=== PATIENT | male | born 1975 | race Caucasian/White ===

== ENCOUNTER 2020-06-20 09:14 | Outpatient (REF) | payer BC, SELFPAY ==
--- NOTE | 2020-06-20 10:48 | ECG_ITS ---
Test Reason : SOB, PREOP Blood Pressure : / mmHG Vent. Rate : 070 BPM Atrial Rate : 070 BPM P-R Int : 140 ms QRS Dur : 086 ms QT Int : 378 ms P-R-T Axes : 047 033 014 degrees QTc Int : 408 ms Normal sinus rhythm Normal ECG When compared with ECG of 29-JUN-2019 10:35, No significant change was found Referred By: Rena Larson Electronically Signed By:VALARIE HANNA MD
[2020-06-20 12:06] LABS: MANUAL DIFF FLAG NO
[2020-06-20 12:10] LABS: Basophils Percent Auto 0.4 % (0-2); Eosinophils Absolute Auto 0.1 X10*3/uL (0.0-0.4); Eosinophils Percent Auto 1.4 % (0-4); Hematocrit 44.4 % (42-52); Hemoglobin 14.2 g/dl (14.0-18.0); Imm Gran Abs Auto 0.03 X10*3/uL (0.00-0.03); Imm Gran Pct Auto 0.4 % (0.0-0.4); Lymphocytes Absolute Auto 1.4 X10*3/uL (1.2-4.9); Lymphocytes Percent Auto 18.4 % (20-40); Mean Corpuscular Hemoglobin 28.6 pg (27.0-33.0); Mean Corpuscular Volume 89.5 fL (80-98); Mean Platelet Volume 9.8 fL (9.4-12.4); Monocytes Absolute Auto 0.5 X10*3/uL (0.1-1.2); Monocytes Percent Auto 6.4 % (2-11); Neutrophils Absolute Auto 5.7 X10*3/uL (2.0-8.3); Platelet Count 215 X10*3/uL (160-400); Red Blood Count 4.96 X10*6/uL (4.60-5.80); Red Cell Distribution Width 13.2 % (11.0-16.0); White Blood Count 7.8 X10*3/uL (4.8-10.8)
[2020-06-20 12:35] LABS: Anion Gap 13 (12-20); Blood Urea Nitrogen 17 mg/dL (9-16); Calcium 8.8 mg/dL (8.4-10.2); Carbon Dioxide 28 mmol/L (22-29); Chloride 104 mmol/L (96-108); Estimated Glomerular Filt Rate > 60; Glucose Random 80 mg/dL (60-115); Potassium 4.5 mmol/l (3.3-5.1); Sodium 140 mmol/L (135-145)
[2020-06-20 12:59] LABS: Glucose Urine UA NEG (NEG); Leukocyte Esterase Urine NEG (NEG); Nitrite Urine NEG (NEG); PH 6.5 (5.0-8.0); Specific Gravity - Urine 1.025 (1.005-1.025); Urine Blood NEG (NEG); Urine Ketones >=80 MG/DL (NEG); Urine Protein NEG (NEG-TRACE)
[2020-06-20 13:02] LABS: Appearance Urine CLEAR; Color Urine DARK YELLOW
== END 2020-06-20 09:15 | disposition home or self-care (01) ==
LOC: HO.LAB 09:14
PROVIDERS: PCP Internal Medicine; Referring Provider Internal Medicine; Visit Provider Surgery
DX: Z01.818 Encounter for other preprocedural examination (principal); R06.02 Shortness of breath; E66.8 Other obesity; Z68.38 Body mass index [BMI] 38.0-38.9, adult; Z71.3 Dietary counseling and surveillance
CPT/HCPCS: 36415; 80048; 81003; 85025; 86850; 86900; 86901; 93005

== ENCOUNTER → 2020-06-21 13:49 | Outpatient (BNVA) | payer BC, OTHER, SELFPAY | PROVIDERS: PCP Internal Medicine; Visit Provider Physician Assistant | DX: Z76.89 Persons encountering health services in other specified circumstances (principal) ==

== ENCOUNTER 2020-06-26 10:01 | Inpatient (IN) | payer BC, SELFPAY ==
[2020-06-19 10:15] VITALS: BMI 39.7
--- NOTE | 2020-06-24 09:03 | HO.ANESPROP2 ---
Documented by User: Trinidad Gruber 06/24/20 09:08 HPI - Anesthesia Eval Consult details Narrative: 45yo M for gastric sleeve PMFSH Past Medical History Medical History (Updated 06/24/20 @ 09:03 by Trinidad Gruber) Anxiety Depression Hx of deep venous thrombosis Obesity Seasonal allergies Family History Family History Father Seizure Mother HTN (hypertension) History of open heart surgery Type 2 diabetes mellitus Heart disease Sister No problems noted. Daughter No problems noted. Daughter No problems noted. Son No problems noted. Maternal Uncle Colon cancer Surgical History Surgical History History of ankle surgery History of open reduction and internal fixation (ORIF) procedure Hx laparoscopic cholecystectomy Hx of appendectomy Hx of bladder repair surgery Hx of pelvic surgery Social History Social History Alcohol intake: current Alcohol intake frequency: a few times a week Alcohol type: other Smoking Status: Never smoker Meds Allergies Allergy/AdvReac Type Severity Reaction Status Date / Time No Known Allergies Allergy Verified 06/20/20 09:48 Home Medications Medication Instructions Recorded Confirmed Type ergocalciferol (vitamin D2) 1,250 mcg PO QWEEK 06/19/20 06/20/20 History [Vitamin D2] thiamine HCl (vitamin B1) [Vitamin 100 mg PO DAILY 06/19/20 06/20/20 History B-1] Exam Exam Date and Time: June 24, 2020 0903 Height,Weight and Vital Signs: Height 5 ft 7 in Weight 115.212 kg Pertinent Lab Results Pertinent Lab Results: Laboratory Tests 04/12/20 06/20/20 06/20/20 12:30 10:51 10:51 WBC 7.8 Hgb 14.2 Hct 44.4 Plt Count 215 Sodium 140 Potassium 4.5 Chloride 104 Carbon Dioxide 28 BUN 17 H Creatinine 0.96 Estimated GFR > 60 Random Glucose 80 Hemoglobin A1c 5.5 Calcium 8.8 Blood Type Antibody Screen 06/20/20 10:51 WBC Hgb Hct Plt Count Sodium Potassium Chloride Carbon Dioxide BUN Creatinine Estimated GFR Random Glucose Hemoglobin A1c Calcium Blood Type B Positive Antibody Screen NEGATIVE Narrative Narrative: EKG: Test Reason : SOB, PREOP Blood Pressure : / mmHG Vent. Rate : 070 BPM Atrial Rate : 070 BPM P-R Int : 140 ms QRS Dur : 086 ms QT Int : 378 ms P-R-T Axes : 047 033 014 degrees QTc Int : 408 ms Normal sinus rhythm Normal ECG When compared with ECG of 29-JUN-2019 10:35, No significant change was found Assessment and Plan Assessment Anesthesia Assessment: Chart Reviewed Documented by User: Maykel Araujo 06/26/20 07:26 PMF Past Medical History Medical History (Updated 06/24/20 @ 09:03 by Trinidad Gruber) Anxiety Depression Hx of deep venous thrombosis Obesity Seasonal allergies Family History Family History Father Seizure Mother HTN (hypertension) History of open heart surgery Type 2 diabetes mellitus Heart disease Sister No problems noted. Daughter No problems noted. Daughter No problems noted. Son No problems noted. Maternal Uncle Colon cancer Surgical History Surgical History History of ankle surgery History of open reduction and internal fixation (ORIF) procedure Hx laparoscopic cholecystectomy Hx of appendectomy Hx of bladder repair surgery Hx of pelvic surgery Social History Social History Alcohol intake: current Alcohol intake frequency: a few times a week Alcohol type: other Smoking Status: Never smoker Meds Allergies Allergy/AdvReac Type Severity Reaction Status Date / Time No Known Allergies Allergy Verified 06/20/20 09:48 Home Medications Medication Instructions Recorded Confirmed Type ergocalciferol (vitamin D2) 1,250 mcg PO QWEEK 06/19/20 06/20/20 History [Vitamin D2] thiamine HCl (vitamin B1) [Vitamin 100 mg PO DAILY 06/19/20 06/20/20 History B-1] Exam Airway Mallampati Class: II TM Dist: >3cm Neck ROM: Full Heart: RRR Assessment and Plan Assessment Anesthesia Assessment: Anesthesia Plan Discussed Final Anesthetic Review NPO: Yes ASA Class: II Final Preanesthetic Review: Consent Obtained/Reviewed Anesthetic Plan Anesthetic Plan: GA Disposition: Standard PACU
--- NOTE | 2020-06-25 16:45 | MHC.SHP ---
Pre-Procedural Eval Section A The patient is an INPATIENT: No The History & Physical has been completed within 30 days and I have reviewed it.: Yes Section B Chief Complaint: Obesity Allergies: Allergies Allergy/AdvReac Type Severity Reaction Status Date / Time No Known Allergies Allergy Verified 06/20/20 09:48 Plan Patient has been examined and remains a candidate for the planned procedure
[2020-06-26] VITALS (14 sets, daily range): BP systolic 121–190; BP diastolic 78–103; PULSE 76–121; RESP 14–20; TEMP 36.2–36.9; O2SAT 92–98
[2020-06-26] MEDS: Lactated Ringers 1,000 ML 125 ML IVCONT (06:36)
[2020-06-26 07:14] LABS: SARS COV2 PCR INHOUSE NEGATIVE (Negative)
--- NOTE | 2020-06-26 10:15 | PM.OP ---
Brief Operative Note Date of procedure: 06/26/20 Pre-op diagnosis: Obesity, BMI 38 Post-op diagnosis: other (Same and paraesophageal hernia) Procedure: Laparoscopic sleeve gastrectomy, paraesophageal hernia repair, intraoperative endoscopy, and ARON block Implants: None Surgeon: Rena Larson MD Anesthesia: [facility] Instructor: Loyda Shi Estimated blood loss (mL): 10 Urine output (mL): 0 Pathology: other (Partial gastrectomy) Condition: stable Disposition: PACU
--- NOTE | 2020-06-26 10:17 | W.PM.OPN ---
Operative Note Operative Note Narrative: Patient was brought into the operating room and placed on the operating room table in the supine position. General anesthesia was induced. Normal DVT prophylaxis was instituted and the patient received 2 grams of cefotetan preoperatively. The abdomen was then prepped and draped in the normal sterile fashion. A safety time-out was performed. A mixture of 1% lidocaine with epinephrine and ??% Marcaine plain was used to anesthetize the planned incision site in the left upper quadrant. A #11 scalpel was used to make a 5 mm left upper quadrant transverse incision through which a veress needle was placed. Three pops were heard going through the fascia. A saline drop test was used to confirm that the veress needle was intraabdominal. An optiview technique was then used to place a 5mm port in the left upper quadrant. A 5 mm 30 degree laproscope was then placed through this port and the abdominal cavity was surveyed and was found to have abdominal adhesions of the omentum to the midline abdominal wall. These were taken down using the laparoscopic LigaSure after an additional 5 mm port was placed in the left lateral left upper quadrant. The patient was placed in reverse Trendelenburg positioning. A norbert liver retractor was then placed in the subxyphoid position and it was used to hold up the left lobe of the liver to the abdominal wall. This was secured to the bed using the liver retractor hernandez. A ARON block was then performed for pain control on the right side of the abdomen. A 5 mm port was placed in the right upper quadrant near the falciform ligament. A 12 mm port was then placed in the mid epigastrium. I then performed a ARON block on the left side of the abdomen. I then removed the epigastric fat pad; there was a small anterior hiatal hernia noted. I reapproximated the left and right crura with a total of 2 stitches of 2-0 ethibond and a laparoscopic knot pusher. There was no residual hiatal hernia. I then opened up the angle of His. We then gained entry into the lesser sac about 4-5 cm from the pylorus. I had anesthesia place a 34 Slovenian orogastric tube into the distal antrum to use as a sizing tool for gastric pouch size. I divided the short gastric vessels up to the angle of His. We then started the creation of the gastric pouch by firing a 60 mm purple load endostapler up the stomach about 4-5 cm from the pylorus. We completed the creation of the gastric pouch using a total of 5 firings of a 60 mm purple load stapler. We had anesthesia remove the orogastric tube, then we clamped across the distal antrum using a fired 60 mm endostapler. We flattened the patient and then instilled normal saline surrounding the newly created staple line. I then performed an on-table endoscopy. I passed the gastroscopy into the posterior oropharynx and down the esophagus evaluating the esophageal mucosa which was normal. There was no evidence of hiatal hernia. I passed the gastroscope into the gastric pouch and insufflated the gastric pouch. There was healthy pink mucosa and no evidence of active bleeding. There was no evidence of leak on laparoscopy. I desufflated the gastric pouch and removed the endoscope. I removed the endostapler from the abdomen and suctioned the fluid from the left upper quadrant. I then removed the partial gastrectomy specimen through the epigastric 12 mm port site. I reapproximated the 12 mm port using a 0 maxon suture with a laparoscopic suture passer. I instilled local anesthetic into the fascial closure site and tied the suture down at a pressure of 8-10 mm of Hg. There was no residual fascial defect. We removed the liver retractor and the left upper quadrant 5 mm ports under direct visualization. There was no evidence of any active bleeding. I desufflated the abdomen through the last remaining port and removed the laparoscope and 5 mm port. We reapproximated all incisions with a 4-0 monocryl subcuticular stitch. We cleaned and dried the abdominal skin and applied dermabond skin glue. All count were correct at the end of the case. The patient was awake and in stable condition prior to extubation and transfer to the recovery room.
[2020-06-26] MEDS: HYDROmorphone HCl 0.5 MG/0.5 ML SYRINGE IVPUSH (10:40)
[2020-06-26] MEDS: Lactated Ringers 1,000 ML 150 ML IVCONT ×2 (11:30→17:47)
--- NOTE | 2020-06-26 12:17 | MHC.CM.PN ---
pt lives c his in their home. he reports that he is independent in his care. 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 pt's can help him should he have any needs. this will include a ride home at dc. pt denies then need for vna at dc. dc plan is home no svcs. cm to cont. to follow
[2020-06-26] MEDS: Metoclopramide HCl 10 MG/2 ML VIAL IVPUSH (17:05)
[2020-06-26] MEDS: HYDROmorphone HCl 0.5 MG/0.5 ML SYRINGE 0.25 MG IVPUSH (17:10)
[2020-06-26] MEDS: Famotidine/PF 20 MG/2 ML VIAL IVPUSH (20:35)
[2020-06-26] MEDS: 0.9 % Sodium Chloride Flush 3 ML SYRINGE IVFLUSH (22:10)
[2020-06-27 03:49] VITALS: BP 142/87; PULSE 100; RESP 16; TEMP 37.1; O2SAT 94
[2020-06-27] MEDS: Lactated Ringers 1,000 ML 150 ML IVCONT (07:06)
[2020-06-27 07:17] VITALS: BP 163/98; PULSE 86; RESP 18; TEMP 36.9; O2SAT 94
[2020-06-27] MEDS: Famotidine/PF 20 MG/2 ML VIAL IVPUSH (08:24)
--- NOTE | 2020-06-27 09:17 | PM.PNGS ---
Subjective Subjective Interval history: Patient reports feeling well. He has mild soreness at the midline laparoscopic 12 mm port site. He has been up and ambulating using incentive spirometer. Pain is well controlled. He denies any nausea vomiting. He is tolerating stage II diet without any difficulty. Vital signs are relatively normal for postoperative day 1. labs are also within normal limits. Physical Exam Vital Signs: Vital Signs: Vital Signs Temp Pulse Resp BP Pulse Ox 06/27/20 07:17 98.4 F 86 18 163/98 H 94 06/27/20 03:49 98.8 F 100 16 142/87 H 94 06/26/20 23:50 98.2 F 102 H 20 150/96 H 94 06/26/20 19:26 98.2 F 98 19 154/94 H 95 06/26/20 16:00 98.3 F 99 18 143/89 H 94 06/26/20 12:55 143/94 H 06/26/20 11:44 97.2 F 104 H 18 190/98 H 92 06/26/20 11:01 104 H 16 147/103 H 97 06/26/20 10:54 107 H 18 152/97 H 96 06/26/20 10:40 97.6 F 103 H 16 145/98 H 97 06/26/20 10:25 104 H 20 147/101 H 96 06/26/20 10:10 101 H 18 139/97 H 97 06/26/20 10:05 107 H 16 150/97 H 96 06/26/20 10:00 104 H 16 155/102 H 95 06/26/20 09:55 97.6 F 121 H 14 135/81 97 Body Mass Index 39.7 Const: General: cooperative, healthy appearing, comfortable, no acute distress, well developed, alert, awake and Physically active Orientation/consciousness: patient oriented x3 GI: Inspection: No Abdominal wall edema, No distended, Yes incision ( Laparoscopy incisions with Dermabond in place. No evidence of infection ) and Yes obesity Palpation (GI): Tenderness to palpation present (GI) ( mild appropriate incisional tenderness.), no guarding, no hernias, no masses and No Rebound tenderness present Neuro: General: patient oriented x3 Extrem: General: Yes normal to inspection, Yes full ROM, Yes no clubbing, cyanosis or edema, Yes no pedal edema and Yes no calf tenderness Progress Note: A&P Assessment and plan (1) Obesity (BMI 30-39.9): Status: Acute (2) Obesity: Status: Acute (3) History of sleeve gastrectomy: Status: Acute Assessment and Plan: patient is postoperative day 1. Status post laparoscopic sleeve gastrectomy and paraesophageal hernia repair doing well on postoperative day 1. Patient is tolerating stage II diet will be advanced to stage III diet. Once he is tolerating stage III diet he will be discharged home to follow up with me in 2 weeks time frame. (4) Status post repair of paraesophageal diaphragmatic hernia: Status: Acute Fall Risk Details Current Medications: Current Medications Generic Name Dose Route Start Last Admin Trade Name Freq PRN Reason Stop Dose Admin Famotidine 20 mg 06/26/20 21:00 06/27/20 08:24 Famotidine/Pf 20 Mg/2 Ml Vial IVPUSH 20 mg BID TALHA Administration Hydralazine HCl 5 mg 06/26/20 13:42 Hydralazine Hcl 20 Mg/Ml Vial IVPUSH Q6H PRN systolic BP > 160 Hydromorphone HCl 0.25 mg 06/26/20 10:01 06/26/20 17:10 Hydromorphone Hcl 0.5 Mg/0.5 Ml Syringe IVPUSH 0.25 mg Q4H PRN Administration Pain, Severe (Pain Scale 7-10) Lactated Ringer's 1,000 mls @ 150 mls/hr 06/26/20 10:15 06/27/20 07:06 Lr IVCONT 150 mls/hr .Q6H40M TALHA Administration Acetaminophen 1,000 mg in 100 mls @ 400 mls/hr 06/26/20 10:15 06/27/20 09:12 Ofirmev IV 400 mls/hr Q6H TALHA Administration Cefotetan Disodium 2 gm/ 50 mls @ 100 mls/hr 06/26/20 19:30 06/26/20 21:19 Dextrose IV Infused ONCE TALHA Infusion Metoclopramide HCl 10 mg 06/26/20 10:01 06/26/20 17:05 Metoclopramide Hcl 10 Mg/2 Ml Vial IVPUSH 10 mg Q6H PRN Administration Nausea Ondansetron HCl 4 mg 06/26/20 10:01 Ondansetron Hcl 4 Mg/2 Ml Vial IVPUSH Q4H PRN Nausea and Vomiting Sodium Chloride 3 ml 06/26/20 16:00 06/27/20 07:06 0.9 % Sodium Chloride Flush 3 Ml Syringe IVFLUSH Not Given QSHIFT TALHA Time Spent With Patient Time: Total time spent is greater than 50% in coordination of care (as documented) at patient's floor/unit and/or counseling patient: Time with patient: less than 15 minutes
--- NOTE | 2020-06-27 10:44 | MHC.CM.PN ---
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 PCP PATIENT TO FOLOW UP WITH PCP DEB FOR POST HOSPITAL DISCHARGE
--- NOTE | 2020-06-27 12:54 | HO.POSTANES ---
Post Anesthesia Evaluation Post Anesthesia Evaluation Vital Signs: Vital Signs Temp Pulse Resp BP Pulse Ox 06/27/20 07:17 98.4 F 86 18 163/98 H 94 06/27/20 03:49 98.8 F 100 16 142/87 H 94 Anesthesia: General Mental Status: Awake Pain Control: Satisfactory Nausea/Vomiting: None Hydration: Adequate Anesthesia-Related Issues: No Anes. Related Issues
--- NOTE | 2020-08-28 15:57 | P.DS_ITS ---
DS: Providers Provider Date of admission: 06/26/20 10:01 Primary care physician: jamia Joe MD DS: Diagnosis Discharge Diagnosis (1) Obesity (BMI 30-39.9): Status: Acute (2) Obesity: Status: Acute (3) History of sleeve gastrectomy: Status: Acute (4) Status post repair of paraesophageal diaphragmatic hernia: Status: Acute DS: Medications Discharge Medications Home Medications: Home Medications Medication Instructions Recorded Confirmed ergocalciferol (vitamin D2) 1,250 mcg PO QWEEK 06/19/20 07/23/20 [Vitamin D2] thiamine HCl (vitamin B1) [Vitamin 100 mg PO DAILY 06/19/20 07/23/20 B-1] DS: Summary Time Spent with Patient Time attestation: Total time spent providing and/or coordinating discharge services: Physical Exam Vital Signs: Vital Signs: Last Vital Signs Temp 98.4 F 06/27/20 07:17 Pulse 86 06/27/20 07:17 Resp 18 06/27/20 07:17 BP 163/98 H 06/27/20 07:17 Pulse Ox 94 06/27/20 07:17 Body Mass Index 39.7 DS: Data Data Completed and Pending Completed studies during hospitalization [Text1]: Pending at discharge 06/26/20 08:34 Surgical [PTH] Routine Procedures Excision of Stomach, Percutaneous Endoscopic Approach, Vertical (06/26/20) Repair Diaphragm, Percutaneous Endoscopic Approach (06/26/20) Labs on day of discharge: 06/26/20 05:46 Acetaminophen [Ofirmev] 1,000 mg in 100 ml IV PREOP cefoTEtan disod/Dextrose,Iso [Cefotan] 2 gm in 50 ml IV PREOP 06/26/20 05:46 Surgical prep, hair removal PREOP 06/26/20 05:50 SARS COV2 PCR INHOUSE Stat 06/26/20 06:00 Lactated Ringers [Lr] 1,000 ml IVCONT 125 mls/hr 06/26/20 06:24 Type and Screen Stat 06/26/20 06:33 Acetaminophen [Ofirmev] 1,000 mg in 100 ml IV As directed 06/26/20 07:10 Bupivacaine MPF 0.25 % [Sensorcaine-MPF 0.25% 10 ML] 10 ml .ROUTE .STK-MED ONE Lidocaine HCl 1%/Epi 1:100,000 [Xylocaine 1 %-EPI 1:100,000] 30 ml .ROUTE .STK-MED ONE 06/26/20 07:14 HYDROmorphone HCl [Dilaudid] 2 mg .ROUTE .STK-MED ONE Ketamine HCl/NS 50 mg IVPUSH .STK-MED ONE Lidocaine HCl 2 % MPF [Xylocaine 2 % MPF] 5 ml .ROUTE .STK-MED ONE Midazolam HCl/PF [Versed] 2 mg IVPUSH .STK-MED ONE Rocuronium [place] [Zemuron] 100 mg IV .STK-MED ONE Succinylcholine Chloride [Quelicin] 100 mg IVPUSH .STK-MED ONE propofoL [Diprivan] 200 mg IVPUSH .STK-MED ONE 06/26/20 07:15 fentaNYL citrate/PF [Sublimaze] 50 mcg .ROUTE .STK-MED ONE 06/26/20 07:27 Continuous pulse oximetry CONT HYDROmorphone HCl [Dilaudid] 0.25 mg IVPUSH Q5M PRN HYDROmorphone HCl [Dilaudid] 0.5 mg IVPUSH Q5M PRN Promethazine HCL [Phenergan] 12.5 mg 0.9 % Sodium Chloride [Ns] 50 ml IV ONCE fentaNYL citrate/PF [Sublimaze] 25 mcg IVPUSH Q5M PRN fentaNYL citrate/PF [Sublimaze] 50 mcg IVPUSH Q5M PRN ondansetron HCL [Zofran] 4 mg IVPUSH ONCE PRN 06/26/20 08:20 fentaNYL citrate/PF [Sublimaze] 50 mcg .ROUTE .STK-MED ONE 06/26/20 08:34 Surgical [PTH] Routine 06/26/20 08:40 Sugammadex Sodium [Bridion] 200 mg IVPUSH .STK-MED ONE dexAMETHasone sod phosphate [Decadron] 4 mg .ROUTE .STK-MED ONE ondansetron HCL [Zofran] 4 mg .ROUTE .STK-MED ONE 06/26/20 09:21 Metoclopramide HCl [Reglan] 10 mg .ROUTE .STK-MED ONE 06/26/20 10:01 Ambulate Q4H WHILE AWAKE Compression Therapy QSHIFT Incentive Spirometry Q1HR WHILE AWAKE Intake and Output Q4HR Code Status Routine HYDROmorphone HCl [Dilaudid] 0.25 mg IVPUSH Q4H PRN Metoclopramide HCl [Reglan] 10 mg IVPUSH Q6H PRN cefoTEtan disod/Dextrose,Iso [Cefotan] 2 gm in 50 ml IV POSTOP ondansetron HCL [Zofran] 4 mg IVPUSH Q4H PRN 06/26/20 10:03 Vital Signs Q4H 06/26/20 10:09 Transfer Order Routine 06/26/20 10:15 Acetaminophen [Ofirmev] 1,000 mg in 100 ml IV Q6H Lactated Ringers [Lr] 1,000 ml IVCONT 150 mls/hr 06/26/20 10:20 Famotidine/PF [Pepcid/PF] 20 mg IVPUSH .STK-MED ONE 06/26/20 13:42 hydrALAZINE HCl [Apresoline] 5 mg IVPUSH Q6H PRN 06/26/20 16:00 0.9 % Sodium Chloride Flush [NS Flush] 3 ml IVFLUSH QSHIFT 06/26/20 19:30 cefoTEtan disodium [Cefotan] 2 gm Dextrose 5 % [D5w] 50 ml IV ONCE 06/26/20 20:26 cefoTEtan disodium [Cefotan] 2 gm .ROUTE .STK-MED ONE 06/26/20 21:00 Famotidine/PF [Pepcid/PF] 20 mg IVPUSH BID Laboratory Last Values Coronavirus (PCR) NEGATIVE (Negative) 06/26/20 05:50 Blood Type B Positive 06/26/20 06:24 Antibody Screen NEGATIVE 06/26/20 06:24 Discharge Plan Discharge Anticipated Discharge Date/Time: 06/27/20 12:00 Patient Disposition: Home, Self-Care Referrals: jamia Joe MD [Primary Care Provider] - Discharge Medications: Continued thiamine HCl (vitamin B1) [Vitamin B-1] 100 mg Tablet 100 mg PO DAILY RF: 0 ergocalciferol (vitamin D2) [Vitamin D2] 1,250 mcg (50,000 unit) Capsule 1,250 mcg PO QWEEK RF: 0 Discharge Orders: Discharge Order (Routine); Ordered 06/27/20 Ordered By: Rena Larson Diet: other Activity on Discharge: No heavy lifting Discharge Date/Time: 06/27/20 11:26 Activity Restrictions/Additional Instructions: Discharge Instructions 1. Please call your doctor or come back to the emergency room should any new symptoms arise. 2. You will receive a courtesy call from [facility] 24-48 hours after discharge. 3. Activity: abstain from alcohol, practice limited stair climbing, no bending, no driving, no exercise, no illicit substances, no lifting, no sex, no tub bath, no work. 4. Diet: continue stage 3 protein shakes until your [address] Larson. 5. Dressing Change/Wound Care: Your incision is covered by surgical glue. If the area is tender, you may apply an ice pack for short intervals (no more than 20 minutes on, followed by at least 20 minutes off). Do not apply heat. Do not use creams, lotions, or topical antibiotics unless instructed to do so by your surgeon. These can cause infection or allergic reaction. 6. Call your doctor if: - Your temperature exceeds 101.5 F - You experience excessive pain or swelling - You have an unexpected reaction to medication - You have excessive bleeding - You experience continued vomiting/nausea - Your incision begins to separate - Your incision shows signs of infection such as increased redness, swelling, excessive pain, heat, or drainage (light blood or clear fluid is normal) 7. General instructions: No lifting greater than 5 lbs for the next 4 [address] within 24 hours of taking narcotic pain medications. If you do not move your bowels in the next 2 days, please take milk of magnesia over the counter. Please follow the post op diet and do not advance your diet until you are seen in the office in about 2 weeks. Please walk around your home every hour or two to prevent blood clots from forming in your legs. You do not need to wake from sleeping to walk. Please sleep in a bed or couch to prevent kinking at the hips and knees. Please take your incentive spirometer (your lung calender roll press operator) home with you and use it for the next few days to prevent pneumonias. You may shower, no hot tubs, baths or swimming pools. Please call the office with any questions or concerns such as increasing abdominal pain, fever, chills, shortness of breath, chest pain, leg pain or swelling, or redness or drainage from your incisions. Please stay on stage 3 diet which includes sugar free clear liquids such as ice pops and jello and broth and crystal light. Avoid all carbonation. Please drink 3 protein shakes with at least 25-30 grams of protein daily or 3 of the Celebrate 4:1 shakes which can be purchased in our office. The Celebrate shakes have all of the bariatric vitamins you need if you consume these shakes. If you are drinking other protein shakes, you will need to purchase the Celebrate multivitamins and calcium that we provide in the office (they will provide all the vitamins you need). Please make sure you are consuming at least 40-60 ounces of water in addition to your 3 protein shakes daily. Do not hesitate to contact the office with any questions at . Discharge Summary Date of Service: 06/27/20 Admitting Diagnosis: obesity Discharge Diagnosis: same, and HH and adhesions Procedure Performed: LSG, hiatal hernia repair, RICHIE, Emily block, intra-operative endoscopy Discharge Medications: 1. Simethicone 80mg tablet chewable (Si tablet every 6 hours orally for 7 days, #28, 1 RF) q4h prn gas 2. Acetaminophen 500 mg tablet (Si tablets as needed every 6 hours orally for 30 days, #240, 0 RF) 3. Ondansetron 4 mg tablet disintegrating (Si tablet every 6 hours orally for 7 days, #28, 1 RF) 4. Colace 100 mg capsule (Si capsule twice a day for 30 days, #60, 2 RF) 5. Pepcid 20 mg chewable tablet (Si tablet twice a day for 30 days, #60, 3 RF) Discharge Instructions: The patient should continue on the stage III bariatric diet, which includes 3 protein shakes of at least 20-30g of protein on a daily basis. The patient was encouraged to avoid drinking liquids with her protein shakes. The patient should wait 30-45 minutes in between her meals and drinking water. They should drink at least 40-60 ounces of water on a daily basis. They should ambulate while at home to avoid any blood clots in her lower extremities. They should call with any questions or concerns such as increase in abdominal pain, persistent nausea, vomiting, redness and drainage from her incisions, fever, chills, shortness of breast, or chest pain beyond what is normal for her. The patient should avoid all heavy lifting greater than 5 pounds for the next 4 weeks. The patient is already scheduled to follow up with me in 2 weeks time, but should call the office with any questions prior to that follow up appointment. The patient should not advance their diet until they are seen in the office for the 2 week appointment. Hospital Course: The patient was admitted after undergoing weight loss surgery. They were started on stage II (1 oz of fluid every 15 minutes) on POD #0. The next morning they were evaluated and started on stage III diet (protein shakes). All labs were within normal limits. On post-operative day #1 the patient was feeling better, nausea and epigastric pain improved and they were tolerating stage III bariatric diet well. The patient was discharged home. Discharge Disposition: Home. Visit Report Forms: Patient Portal Discharge page Care Plan Goals: weight loss Health Concerns: obesity Plan of Treatment: lap sleeve gastrectomy
== END 2020-06-27 11:26 | disposition home or self-care (01) | DRG 403 ==
PROVIDERS: Admitting Provider Surgery; PCP Internal Medicine; Visit Provider Surgery
PROC: 0DB64Z3 Excision of Stomach, Percutaneous Endoscopic Approach, Vertical (ICD-10-PCS; CPT 43845; principal; 2020-06-26 07:30)
DX: E66.01 Morbid (severe) obesity due to excess calories (principal); F32.9 Major depressive disorder, single episode, unspecified; F41.9 Anxiety disorder, unspecified; Z20.828 Contact with and (suspected) exposure to other viral communicable diseases; Z68.39 Body mass index [BMI] 39.0-39.9, adult; K44.9 Diaphragmatic hernia without obstruction or gangrene; Z79.899 Other long term (current) drug therapy
CPT/HCPCS: 86850; 86900; 86901; 87635; 88307; 88342; C1776; J0131; J0330; J1100; J1170; J2250; J2405; J2765; J3010

== ENCOUNTER → 2020-07-09 11:19 | Outpatient (BNVA) | payer BC, OTHER, SELFPAY | PROVIDERS: PCP Internal Medicine; Visit Provider Surgery | DX: Z76.89 Persons encountering health services in other specified circumstances (principal) ==

== ENCOUNTER → 2020-07-23 15:52 | Outpatient (BNVA) | payer BC, OTHER, SELFPAY | PROVIDERS: PCP Physician Assistant; Referring Provider Physician Assistant; Visit Provider Physician Assistant | DX: Z76.89 Persons encountering health services in other specified circumstances (principal) ==

== ENCOUNTER 2020-07-24 16:40 | Outpatient (REF) | payer BC, OTHER, SELFPAY | END 2020-07-24 16:41 | disposition home or self-care (01) | LOC: HO.LAB 16:40 | PROVIDERS: PCP Internal Medicine; Visit Provider Internal Medicine | DX: Z20.828 Contact with and (suspected) exposure to other viral communicable diseases (principal) | CPT/HCPCS: C9803; U0003 ==

== ENCOUNTER → 2020-08-27 08:17 | Outpatient (BNVA) | payer BC, OTHER, SELFPAY | PROVIDERS: PCP Physician Assistant; Referring Provider Physician Assistant; Visit Provider Dietitian, Registered | DX: Z76.89 Persons encountering health services in other specified circumstances (principal) ==

== ENCOUNTER → 2020-09-19 14:02 | Outpatient (BNVA) | payer OTHER, SELFPAY | PROVIDERS: PCP Physician Assistant; Visit Provider Surgery | DX: Z76.89 Persons encountering health services in other specified circumstances (principal) ==

== ENCOUNTER → 2020-10-15 12:28 | Outpatient (BNVA) | payer OTHER, SELFPAY | PROVIDERS: PCP Physician Assistant; Visit Provider Physician Assistant ==

== ENCOUNTER → 2020-12-17 13:59 | Outpatient (BNVA) | payer OTHER, SELFPAY | PROVIDERS: PCP Internal Medicine; Visit Provider Surgery ==

== ENCOUNTER 2020-12-19 12:19 | Outpatient (REF) | payer OTHER, SELFPAY ==
[2020-12-19 13:17] LABS: MANUAL DIFF FLAG NO
[2020-12-19 13:24] LABS: Basophils Percent Auto 0.8 % (0-2); Eosinophils Absolute Auto 0.1 X10*3/uL (0.0-0.4); Eosinophils Percent Auto 2.4 % (0-4); Hematocrit 46.2 % (42-52); Hemoglobin 15.2 g/dl (14.0-18.0); Imm Gran Abs Auto 0.01 X10*3/uL (0.00-0.03); Imm Gran Pct Auto 0.2 % (0.0-0.4); Lymphocytes Absolute Auto 1.7 X10*3/uL (1.2-4.9); Lymphocytes Percent Auto 34.3 % (20-40); Mean Corpuscular HGB Conc 32.9 g/dl (31.0-36.0); Mean Corpuscular Hemoglobin 29.1 pg (27.0-33.0); Mean Corpuscular Volume 88.5 fL (80-98); Mean Platelet Volume 9.5 fL (9.4-12.4); Monocytes Absolute Auto 0.5 X10*3/uL (0.1-1.2); Monocytes Percent Auto 8.9 % (2-11); Neutrophils Absolute Auto 2.7 X10*3/uL (2.0-8.3); Neutrophils Percent Auto 53.4 % (45-73); Platelet Count 199 X10*3/uL (160-400); Red Blood Count 5.22 X10*6/uL (4.60-5.80); White Blood Count 5.1 X10*3/uL (4.8-10.8)
[2020-12-19 13:35] LABS: Alanine Aminotransferase 17 U/L (0-40); Albumin Level 4.1 g/dL (3.5-5.0); Alkaline Phosphatase 70 U/L (39-117); Anion Gap 13 (12-20); Aspartate Amino Transferase 22 U/L (5-37); Bilirubin Total 1.1 mg/dL (0.0-1.0); Blood Urea Nitrogen 13 mg/dL (9-16); C Reactive Protein 0.19 mg/dL (< or = 0.50); Calcium 9.3 mg/dL (8.4-10.2); Carbon Dioxide 29 mmol/L (22-29); Chloride 104 mmol/L (96-108); Cholesterol 165 mg/dL; Estimated Glomerular Filt Rate > 60; Glucose Fasting 99 mg/dL (60-99); HDL Cholesterol 48 mg/dL; Iron 84 mcg/dL (45-160); LDL Cholesterol Calculated 108 mg/dl; Percent Iron Saturation 29 % (15-50); Potassium 4.7 mmol/L (3.3-5.1); Sodium 141 mmol/L (135-145); Total Iron Binding Capacity 289 mcg/dL (228-428); Total Protein 6.9 g/dL (6.5-8.0); Triglycerides 48 mg/dL; Unsaturated Iron Binding 205 ug/dL
[2020-12-19 13:37] LABS: Estimated Average Glucose 103 mg/dL; Hemoglobin A1c % 5.2 %
[2020-12-19 13:59] LABS: Thyroid Stimulating Hormone 0.44 uIU/mL (0.32-4.0); Vitamin D 25-OH Total 38.8 ng/mL (>30)
[2020-12-19 14:07] LABS: Vitamin B12 444 pg/mL (200-900)
[2020-12-23 01:26] LABS: Zinc 65 mcg/dL (60-130)
[2020-12-24 17:21] LABS: Vitamin A 31 mcg/dL (38-98)
[2020-12-25 17:22] LABS: Vitamin B1 <6 nmol/L (8-30)
== END 2020-12-19 12:20 | disposition home or self-care (01) ==
LOC: HO.LAB 12:19
PROVIDERS: PCP Internal Medicine; Visit Provider Surgery
DX: Z01.818 Encounter for other preprocedural examination (principal); K91.2 Postsurgical malabsorption, not elsewhere classified; Z90.3 Acquired absence of stomach [part of]
CPT/HCPCS: 36415; 80053; 80061; 82306; 82607; 83036; 83540; 84425; 84443; 84590; 84630; 85025; 86140

== ENCOUNTER → 2021-01-21 14:05 | Outpatient (BNVA) | payer SELFPAY | PROVIDERS: PCP Internal Medicine; Visit Provider Dietitian, Registered | DX: E66.3 Overweight (principal); Z68.28 Body mass index [BMI] 28.0-28.9, adult | CPT/HCPCS: 97803 ==

== ENCOUNTER → 2021-04-07 14:54 | Outpatient (BNVA) | payer OTHER, SELFPAY | PROVIDERS: PCP Internal Medicine; Visit Provider Physician Assistant ==

== ENCOUNTER 2021-06-02 10:37 | Outpatient (REF) | payer OTHER, SELFPAY ==
[2021-06-02 12:44] LABS: MANUAL DIFF FLAG NO
[2021-06-02 12:58] LABS: Basophils Absolute Auto 0.1 X10*3/uL (0.0-0.2); Basophils Percent Auto 1.2 % (0-2); Eosinophils Absolute Auto 0.2 X10*3/uL (0.0-0.4); Eosinophils Percent Auto 3.5 % (0-4); Hematocrit 45.6 % (42-52); Hemoglobin 15.5 g/dl (14.0-18.0); Imm Gran Abs Auto 0.02 X10*3/uL (0.00-0.03); Imm Gran Pct Auto 0.5 % (0.0-0.4); Lymphocytes Absolute Auto 1.4 X10*3/uL (1.2-4.9); Lymphocytes Percent Auto 32.6 % (20-40); Mean Corpuscular Hemoglobin 30.5 pg (27.0-33.0); Mean Corpuscular Volume 89.6 fL (80-98); Mean Platelet Volume 9.4 fL (9.4-12.4); Monocytes Absolute Auto 0.4 X10*3/uL (0.1-1.2); Monocytes Percent Auto 10.3 % (2-11); Neutrophils Absolute Auto 2.2 X10*3/uL (2.0-8.3); Neutrophils Percent Auto 51.9 % (45-73); Platelet Count 191 X10*3/uL (160-400); Red Blood Count 5.09 X10*6/uL (4.60-5.80); Red Cell Distribution Width 12.6 % (11.0-16.0); White Blood Count 4.3 X10*3/uL (4.8-10.8)
[2021-06-02 12:59] LABS: Estimated Average Glucose 97 mg/dL
[2021-06-02 13:13] LABS: Alanine Aminotransferase 16 U/L (0-40); Albumin Level 4.2 g/dL (3.5-5.0); Alkaline Phosphatase 67 U/L (39-117); Anion Gap 11 (12-20); Aspartate Amino Transferase 22 U/L (5-37); Bilirubin Total 0.8 mg/dL (0.0-1.0); Blood Urea Nitrogen 10 mg/dL (9-16); C Reactive Protein 0.07 mg/dL (< or = 0.50); Calcium 9.3 mg/dL (8.4-10.2); Carbon Dioxide 30 mmol/L (22-29); Chloride 105 mmol/L (96-108); Cholesterol 167 mg/dL; Estimated Glomerular Filt Rate > 60; Glucose Fasting 103 mg/dL (60-99); HDL Cholesterol 67 mg/dL; Iron 128 mcg/dL (45-160); LDL Cholesterol Calculated 89 mg/dl; Percent Iron Saturation 43 % (15-50); Potassium 4.6 mmol/L (3.3-5.1); Sodium 141 mmol/L (135-145); Total Iron Binding Capacity 296 mcg/dL (228-428); Triglycerides 58 mg/dL; Unsaturated Iron Binding 168 ug/dL
[2021-06-02 13:36] LABS: Thyroid Stimulating Hormone 0.68 uIU/mL (0.32-4.0); Vitamin D 25-OH Total 26.6 ng/mL (>30)
[2021-06-02 13:38] LABS: Vitamin B12 274 pg/mL (200-900)
[2021-06-04 15:40] LABS: Zinc 80 mcg/dL (60-130)
[2021-06-07 00:22] LABS: Vitamin A 42 mcg/dL (38-98)
[2021-06-07 12:17] LABS: Vitamin B1 6 nmol/L (8-30)
== END 2021-06-02 10:38 | disposition home or self-care (01) ==
LOC: HO.LAB 10:37
PROVIDERS: PCP Internal Medicine; Visit Provider Surgery
DX: Z01.818 Encounter for other preprocedural examination (principal); E66.3 Overweight; Z68.28 Body mass index [BMI] 28.0-28.9, adult; K21.9 Gastro-esophageal reflux disease without esophagitis; Z90.3 Acquired absence of stomach [part of]
CPT/HCPCS: 36415; 80053; 80061; 82306; 82607; 83036; 83540; 84425; 84443; 84590; 84630; 85025; 86140; 99212

== ENCOUNTER 2025-04-05 11:20 | Outpatient (AMB) | payer BC, SELFPAY ==
--- NOTE | 2025-04-05 11:22 | A.OFFVIS_ITS ---
VS Expanded 04/05/25 11:30 BP 129/81 Blood Pressure Location Rt brachial Blood Pressure Position Sitting Pulse 86 Pulse Source Pulse Oximeter Temp 97.2 F Temperature Source Temporal Artery Scan Pulse Oximetry 98 Oxygen Delivery Method Room Air Height 5 ft 7 in Weight 202 lb BMI 31.6 Body Fat % 26.0 Body Fat Mass 52.4 Fat Free Mass 149.4 Visceral Fat Rating 13.0 Body Water % 54.0 Body Water Mass 109.2 Muscle Mass/Score 142.0 Basal Metabolic Rate/Score 1,986 Intake Visit Reasons: OV MO PO LSG 06/26/20 Allergies No Known Allergies Allergy (Verified 04/05/25 11:26) Medication List - Last Reconciled 04/05/25 by RADHA Ch No Known Home Meds HPI Comments Details: This?is a?50?yo F who is s/p LSG 06/26/[address] Larson. Has not been seen in office since May 2021. Weight gain of 23.2lbs since last OV. No complaints of nausea, emesis, abdominal pain or reflux. Does struggle with constipation. Feels he can eat more now. Had been down to 179lbs after surgery. Present meal plan includes: not too consistent with nutrition one meal, then may have a protein bar or egg bites Exercise routine includes: nothing currently Have you been diagnosed with reflux (GERD)? no Score 0-5: 0=no symptoms, 1=noticeable but not bothersome (slight or occasional), 2=noticeable, bothersome but not daily, 3=bothersome and daily, 4=affects daily activities, 5=incapacitating, unable to do daily activities How bad is the heartburn: 0 Heartburn when lying down: 0 Heartburn when standing up: 0 Heartburn after meals: 0 Does heartburn change your diet: 0 Does heartburn wake you up from sleep: 0 Do you have difficulty swallowin Do you have pain with swallowin If you take medication for reflux, does this affect your daily life: 0 Total score: 0 PFSH Medical History Anxiety BMI 28.0-28.9,adult Depression Hx of deep venous thrombosis Intestinal malabsorption following gastrectomy Malabsorption due to intolerance, not elsewhere classified Overweight (BMI 25.0-29.9) Seasonal allergies Surgical History History of ankle surgery History of open reduction and internal fixation (ORIF) procedure History of sleeve gastrectomy Hx laparoscopic cholecystectomy Hx of appendectomy Hx of bladder repair surgery Hx of pelvic surgery Status post repair of paraesophageal diaphragmatic hernia Family History Father Seizure Mother HTN (hypertension) History of open heart surgery Type 2 diabetes mellitus Heart disease Sister No problems noted. Daughter No problems noted. Daughter No problems noted. Son No problems noted. Maternal Uncle Colon cancer Social History (Updated 06/02/21 @ 11:27 by Rena Larson MD) Are you a primary home health care social worker to a significant other at home: Yes Do you presently have visiting nurse or other home services: No Alcohol intake: current Alcohol intake frequency: a few times a week Alcohol type: other Comment: medicated for pain, resting, pain improving Patient Tobacco Use Status: Never used Tobacco service: No Current occupational status: employed Assessment & Plan Assessment & Plan (1) History of sleeve gastrectomy: Code(s): Z90.3 - Acquired absence of stomach [part of] Category: Surgical (2) Obesity (BMI 30-39.9): Code(s): E66.9 - Obesity, unspecified Category: Medical Plan Gave pt NG Advant[employer] jaci download info and encouraged him to follow meal plan created by the jaci. He was agreeable to this plan. He will try to increase exercise as well. Labs ordered. RTC 3mo, texted pt and encouraged him to reach out between appts with any questions. Orders: Orders IRON PROFILE Today Z90.3 - Acquired absence of stomach [part of] C Reactive Protein Today Z90.3 - Acquired absence of stomach [part of] Vitamin B1 Today Z90.3 - Acquired absence of stomach [part of] Zinc Today Z90.3 - Acquired absence of stomach [part of] Comprehensive Met. Panel Today Z90.3 - Acquired absence of stomach [part of] Insulin Today Z90.3 - Acquired absence of stomach [part of] Hemoglobin A1c Today Z90.3 - Acquired absence of stomach [part of] Lipid Panel Today Z90.3 - Acquired absence of stomach [part of] Vitamin D 25-OH Total Today Z90.3 - Acquired absence of stomach [part of] Ferritin Today Z90.3 - Acquired absence of stomach [part of] TSH reflex Free T4 Today Z90.3 - Acquired absence of stomach [part of] Vitamin A Today Z90.3 - Acquired absence of stomach [part of] Vitamin B12 and Folate Today Z90.3 - Acquired absence of stomach [part of] Complete Blood Count Auto Diff Today Z90.3 - Acquired absence of stomach [part of] Medications: New inulin 2 grams PO DAILY 90 tabs 3RF docusate sodium 100 mg PO DAILY 90 caps 1RF
[2025-04-05 11:30] VITALS: BP 129/81; PULSE 86; TEMP 36.2; O2SAT 98; BMI 31.6
--- OUTSIDE RECORDS SUMMARY | 2025-04-05 12:10 | XMS_ITS | Clinical Summary ---
Author Organization [facility] Address [address] [place] [address] Care Team Providers Care Medical Associate Name Role Phone Heath Lucio MD Primary Care Provider [phone] Allergies No known active allergies Medications traZODone (DESYREL) 50 MG tabletIndicatio ns:Pelvic fracture (HCC) Take 1 tablet (50 mg total) by mouth nightly as needed for sleep. 07/14/2017 Active ELIQUIS 5 MG tabletIndicatio ns:Deep Vein Thrombosis Take 5 mg by mouth 2 (two) times a day. 09/13/2017 Active Active Problems Problem Noted Date Diagnosed Date Humerus fracture 07/13/2017 Pelvic hematoma, male 07/13/2017 Bladder injury 07/13/2017 Overview (07/13/2017): Extraperitoneal Urethral injury 07/13/2017 Acute pulmonary embolism 07/13/2017 Closed fracture of transverse process of lumbar vertebra 07/13/2017 Resolved Problems Problem Noted Date Diagnosed Date Resolved Date Pelvic fracture 07/03/2017 10/12/2017 Immunizations Immunization Administration Dates Next Due Tdap 07/03/2017 Social History Tobacco Use Types Packs/Day Years Used Date Smoking Tobacco: Never Smokeless Tobacco: Never Alcohol Use Standard Drinks/Week Comments Yes 0 (1 standard drink = 0.6 oz pur e alcohol) social Sex and Gender Information Value Date Recorded Sex Assigned at Not on file Legal Sex Male 1:45 PM EDT Gender Identity Not on file Sexual Orientation Not on file Last Filed Vital Signs Vital Sign Reading Time Taken Comments Blood Pressure 146/86 10/13/2017 2:30 PM EST Pulse 103 10/13/2017 2:45 PM EST Temperature 37.2 C (99 F) 10/13/2017 2:45 PM EST Respiratory Rate 16 12/22/2017 10:39 AM EDT Oxygen Saturation 96% 10/13/2017 2:45 PM EST Inhaled Oxygen Concentration - - Weight 126 kg (278 lb) 12/22/2017 10:39 AM EDT Height 170.2 cm (5' 7 ) 12/22/2017 10:39 AM EDT Body Mass Index 43.54 12/22/2017 10:39 AM EDT Plan of Treatment Health Maintenance Due Date Last Done Comments Hepatitis C Virus Screening 1975 HIV Screening 01/06/1989 Hepatitis B Vaccines (1 of 3 - 19+ 3-dose series) 01/06/1995 Colonoscopy 01/06/2021 COVID-19 Vaccine (1 - 2023-2 5 season) 2024 Influenza Vaccine 04/06/2025 DTaP/Tdap/Td Vaccines (2 - T d or Tdap) 07/03/2027 07/03/2017 Pneumococcal Vaccine: Pediat marva (0-5 Years) and At-Risk Patients (6 to 49 Years) Aged Out No longer eligible b ased on patient's age to complete this topic Medical Devices Implanted Type Area Narcotics And Vice Detective Device Identifier Shelf Expiration Date Model / Serial / Lot Plate [id number] 10 Hole Lmt Cntct Taper End Brd Ss Bone - [id number] Implanted:Qty: 1 on 07/09/2017 by Sunil Rodas MD at [facility] Plate Right: Arm [employer] 226.601 / / Plate [id number] 5 Hole Ss Bone Lcp Cmbn Nonst 3.5mm Screw - [id number] Implanted:Qty: 1 on 07/09/2017 by Sunil Rodas MD at [facility] Plate Right: Arm [employer] 223.551 / / Screw Bone Lg Bone Flthrd Lg Hex Hmsphr Rvrs Cut Flut 70mm - [id number] Implanted:Qty: 1 on 07/06/2017 by Phoenix Roblero MD at [facility] Screw [employer] 209.670 / / Screw Bone Clavicle Hum Tibia Kirby Lc Dcp Dcp Flthrd Hex 10 - [id number] Implanted:Qty: 2 on 07/09/2017 by Sunil Rodas MD at [facility] Screw Right: Arm [employer] 204.810 / / Screw Bone Periart Cndyl Kirby Lcp 30mm Ss 4.5mm 8mm Slftp Lg - [id number] Implanted:Qty: 1 on 07/09/2017 by Sunil Rodas MD at [facility] Screw Right: Arm [employer] 214.830 / / Screw Bone Kirby 32mm Ss 4.5mm Slftp Lg Hex Nonst Lg Frag Set - [id number] Implanted:Qty: 5 on 07/09/2017 by Sunil Roads MD at [facility] Screw Right: Arm [employer] 214.832 / / Washer 13mm Orthopedic Ss 6.5/7/7.3mm Lakisha Screw Nonst - [id number] Implanted:Qty: 1 on 07/06/2017 by Phoenix Roblero MD at [facility] Washer/Nu t [employer] 219.99 / / [id number] Screw Implanted:Qty: 2 on 07/06/2017 by Phoenix Roblero MD at [facility] [employer] [id number] / / 500mm Tony Implanted:Qty: 1 on 07/06/2017 by Phoenix Roblero MD at [facility] [employer] [id number] / / Saddless Cap Implanted:Qty: 2 on 07/06/2017 by Phoenix Roblero MD at [facility] [employer] [id number] / / Insurance [facility] (AUTO/LIABILITY) [facility] (AUTO/LIABILITY) Advance Directives * Full Code (Latest Code Status on File) Date Activated Date Inactivated Comments 10/13/2017 9:28 AM Question Answer Comments Decision Thoroughly Discussed with: Patient * Full Code Date Activated Date Inactivated Comments 07/09/2017 9:00 PM 10/13/2017 8:55 AM * Full Code Date Activated Date Inactivated Comments 07/07/2017 5:52 AM 07/09/2017 9:00 PM * Full Code Date Activated Date Inactivated Comments 07/03/2017 3:55 PM 07/07/2017 5:52 AM Care Teams Medical Associate Relationship Specialty Start Date End Date Heath Lucio MD [address] [place] [id number] PCP - General Internal Medicine 07/05/17
== END 2025-04-05 11:54 | disposition home or self-care (01) ==
LOC: HO.HBS 11:21
PROVIDERS: PCP Internal Medicine; Visit Provider Physician Assistant Surgical
DX: E66.9 Obesity, unspecified (principal); Z68.31 Body mass index [BMI] 31.0-31.9, adult; Z90.3 Acquired absence of stomach [part of]; Z98.84 Bariatric surgery status
CPT/HCPCS: 99204

== ENCOUNTER 2025-04-06 09:52 | Outpatient (REF) | payer BC, SELFPAY ==
--- OUTSIDE RECORDS SUMMARY | 2025-04-06 10:03 | XMS_ITS | Clinical Summary ---
Author Organization [facility] Address [address] [place] [address] Care Team Providers Care Material Dispatcher Name Role Phone Heath Lucio MD Primary Care Provider [phone] Allergies No known active allergies Medications traZODone [...] this topic Medical Devices Implanted Type Area Livestock Commission Agent Device Identifier Shelf Expiration Date Model / Serial / Lot Plate [id number] 10 Hole Lmt Cntct Taper End Brd Ss Bone - [id number] Implanted:Qty: 1 on 07/09/2017 by Sunil Rodas MD at [facility] Plate Right: Arm [employer] 226.601 / / Plate [id number] 5 Hole Ss Bone Lcp Cmbn Nonst 3.5mm Screw - [id number] Implanted:Qty: 1 on 07/09/2017 by Sunil Rodas MD at [facility] Plate Right: Arm [employer] 223.551 / / Screw Bone Lg Bone Flthrd Lg Hex Hmsphr Rvrs Cut Flut 70mm - [id number] Implanted:Qty: 1 on 07/06/2017 by Phoenix Roblero MD at [facility] Screw [employer] 209.670 / / Screw Bone Clavicle Hum Tibia Kirby Lc Dcp Dcp Flthrd Hex 10 - [id number] Implanted:Qty: 2 on 07/09/2017 by Sunil Rodas MD at [facility] Screw Right: Arm [employer] 204.810 / / Screw Bone Periart Cndyl Kirby Lcp 30mm Ss 4.5mm 8mm Slftp Lg - [id number] Implanted:Qty: 1 on 07/09/2017 by Sunil Rodas MD at [facility] Screw Right: Arm [employer] 214.830 / / Screw Bone Kirby 32mm Ss 4.5mm Slftp Lg Hex Nonst Lg Frag Set - [id number] Implanted:Qty: 5 on 07/09/2017 by Sunil Rodas MD at [facility] Screw Right: Arm [employer] 214.832 / / Washer 13mm Orthopedic Ss 6.5/7/7.3mm Lakisha Screw Nonst - [id number] Implanted:Qty: 1 on 07/06/2017 by Phoenix Roblero MD at [facility] Washer/Nu t [employer] 219.99 / / [id number] Screw Implanted:Qty: 2 on 07/06/2017 by Phoenix Roblero MD at [facility] [employer] [id number] / / 500mm Tony Implanted:Qty: 1 on 07/06/2017 by Phoenix Roblero MD at [facility] [employer] [id number] / / Saddless Cap Implanted:Qty: 2 on 07/06/2017 by Phoenix Roblero MD at [facility] [employer] [id number] / / Insurance [facility] [place] ([place]) [facility] [place]AUT[place]) Advance Directives * Full Code [...] 3:55 PM 07/07/2017 5:52 AM Care Teams Material Dispatcher Relationship Specialty Start Date End Date Heath Lucio MD [address] [place] [id number] PCP - General Internal Medicine 07/05/17
[2025-04-06 14:26] LABS: MANUAL DIFF FLAG NO
[2025-04-06 14:34] LABS: Hematocrit 42.5 % (42.0-52.0); Hemoglobin 14.8 g/dl (14.0-18.0); Imm Gran Abs Auto 0.01 X10*3/uL (0.00-0.03); Imm Gran Pct Auto 0.2 % (0.0-0.4); Lymphocytes Absolute Auto 1.7 X10*3/uL (1.2-4.9); Mean Corpuscular HGB Conc 34.8 g/dl (31.0-36.0); Mean Corpuscular Hemoglobin 30.8 pg (27.0-33.0); Mean Corpuscular Volume 88.4 fL (80.0-98.0); NRBC Abs Auto 0.000 X10*3/uL (0.0-0.012); NRBC Pct Auto 0.0 /100WBC (0.0-0.2); Platelet Count 188 X10*3/uL (160-400); Red Blood Count 4.81 X10*6/uL (4.60-5.80); White Blood Count 5.3 X10*3/uL (4.8-10.8)
[2025-04-06 14:57] LABS: Alanine Aminotransferase 18 U/L (0-40); Albumin Level 4.1 g/dL (3.5-5.0); Alkaline Phosphatase 50 U/L (39-117); Anion Gap 8 (12-20); Aspartate Amino Transferase 25 U/L (5-37); Blood Urea Nitrogen 15 mg/dL (9-16); Calcium 8.7 mg/dL (8.4-10.2); Carbon Dioxide 28 mmol/L (22-29); Chloride 108 mmol/L (96-108); Cholesterol 183 mg/dL (<200); Estimated Glomerular Filt Rate > 60; HDL Cholesterol 55 mg/dL (>40); Iron 68 mcg/dL (45-160); Percent Iron Saturation 25 % (15-50); Potassium 4.4 mmol/L (3.3-5.1); Sodium 140 mmol/L (135-145); Total Iron Binding Capacity 272 mcg/dL (228-428); Total Protein 6.9 g/dL (6.5-8.0); Triglycerides 71 mg/dL (<150); Unsaturated Iron Binding 204 ug/dL
[2025-04-06 15:01] LABS: Hemoglobin A1C 129.3969 umol/L; Total Hemoglobin (HGBA1C) 3916.7267 umol/L
[2025-04-06 15:04] LABS: Ferritin 177 ng/mL (20-250)
[2025-04-06 15:22] LABS: Folate 3.4 ng/mL (> or = 4.0); Vitamin B12 320 pg/mL (200-900)
== END 2025-04-06 09:53 | disposition home or self-care (01) ==
LOC: HO.HMGCLDS 09:52
PROVIDERS: PCP Internal Medicine; Visit Provider Physician Assistant Surgical
DX: Z90.3 Acquired absence of stomach [part of] (principal)
CPT/HCPCS: 36415; 80053; 80061; 82306; 82607; 82728; 82746; 83036; 83525; 83540; 84425; 84443; 84590; 84630; 85025; 86140

== ENCOUNTER 2025-07-11 12:52 | Outpatient (AMB) | payer BC, SELFPAY ==
--- NOTE | 2025-07-11 12:54 | A.OFFVIS_ITS ---
VS Expanded 07/11/25 13:03 BP 120/77 Blood Pressure Location Rt brachial Blood Pressure Position Sitting Pulse 91 Pulse Source Pulse Oximeter Temp 97.8 F Temperature Source Temporal Artery Scan Pulse Oximetry 98 Oxygen Delivery Method Room Air Height 5 ft 7 in Weight 181 lb 12.8 oz BMI 28.5 Body Fat % 22.4 Body Fat Mass 40.8 Fat Free Mass 140.8 Visceral Fat Rating 10.0 Body Water % 56.1 Body Water Mass 101.8 Muscle Mass/Score 133.8 Basal Metabolic Rate/Score 1,852 Intake Visit Reasons: OV PO LSG 06/26/20 Allergies No Known Allergies Allergy (Verified 07/11/25 13:00) Medication List - Last Reconciled 07/11/25 by RADHA Ch docusate sodium 100 mg PO DAILY inulin 2 grams PO DAILY thiamine HCl (vitamin B1) 100 mg PO DAILY zinc gluconate 30 mg PO DAILY HPI Comments Details: This is a 50 yo F who is s/p LSG 06/26/[address] Larson. Returned to office in March after not having been seen in office since May 2021. Had increased up to 215lb last year. Weight loss of 20.2lb since last OV in March. No complaints of nausea, emesis, abdominal pain or reflux. Does struggle with constipation. Had been down to 179lbs after surgery. Present meal plan includes: at last visit gave pt RightBMI jaci info 3 shakes per day- Premier, and 1-2 bars (Premier) trying to stick to just supplements once in a while will have a meal Exercise routine includes: 45min elliptical, weights for 60min 4-6x week PFSH Medical History Anxiety BMI 28.0-28.9,adult Depression Hx of deep venous thrombosis Intestinal malabsorption following gastrectomy Malabsorption due to intolerance, not elsewhere classified Overweight (BMI 25.0-29.9) Seasonal allergies Surgical History History of ankle surgery History of open reduction and internal fixation (ORIF) procedure History of sleeve gastrectomy Hx laparoscopic cholecystectomy Hx of appendectomy Hx of bladder repair surgery Hx of pelvic surgery Status post repair of paraesophageal diaphragmatic hernia Family History Father Seizure Mother HTN (hypertension) History of open heart surgery Type 2 diabetes mellitus Heart disease Sister No problems noted. Daughter No problems noted. Daughter No problems noted. Son No problems noted. 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: Yes Do you presently have visiting nurse or other home services: No Alcohol intake: current Alcohol intake frequency: a few times a week Alcohol type: other Comment: medicated for pain, resting, pain improving Patient Tobacco Use Status: Never used Tobacco service: No Current occupational status: employed Assessment & Plan Assessment & Plan (1) History of sleeve gastrectomy: Code(s): Z90.3 - Acquired absence of stomach [part of] Category: Surgical (2) Overweight: Code(s): E66.3 - Overweight Category: Medical Plan I commended pt on his excellent weight loss progress with his improved nutrition and increased exercise. We discussed goal of 160lb and monitoring body composition as he continues to lose weight. Pt is interested in starting GLP1. Reviewed contraindications, discussed dosing. Discussed need for adequate protein intake while on GLP1s as well as frequent communication with our office. Pt will check in with me weekly and is aware that subsequent Rx will be dependent on frequent communication. RTC in November. Repeat vitamin levels at next visit. Medications: New sennosides (Senokot) 8.6 mg PO DAILY 90 tabs 1RF semaglutide (weight loss) (Heidivliam) administer weeks 1 through 4 of therapy 0.25 mg (0.5 mL) subcut QWEEK 2 mL 0RF
[2025-07-11 13:03] VITALS: BP 120/77; PULSE 91; TEMP 36.6; O2SAT 98; BMI 28.5
--- OUTSIDE RECORDS SUMMARY | 2025-07-11 15:34 | XMS_ITS | Encounter Summary ---
Author Organization [facility] Address [address] [place] [address] Care Team Providers Care Mail Processing Equipment Mechanic Name Role Phone Heath Lucio MD Primary Care Provider [phone] Encounter Details Date Type Department Care Team (Late st Contact Info) Description 10/13/2017 Prep for Surgery ORTHOPEDICS IP [address] [place] [phone] Phoenix Roblero MD [address] [facility] [address] [place] [address] Social History Tobacco Use Types Packs/Day Years Used Date Smoking Tobacco: Never Smokeless Tobacco: Never Alcohol Use Standard Drinks/Week Comments Yes 0 (1 standard drink = 0.6 oz pur e alcohol) social Sex and Gender Information Value Date Recorded Sex Assigned at Not on file Legal Sex Male 1:45 PM EDT Gender Identity Not on file Sexual Orientation Not on file documented as of this encounter H&P Notes * Phoenix Roblero MD - 10/13/2017 10:44 AM EST No changes from outpatient H&P dated 10/04/17 To OR for removal pelvic hardware and stress exam documented in this encounter Plan of Treatment Not on file documented as of this encounter Visit Diagnoses Not on filedocumented in this encounter Care Teams Mail Processing Equipment Mechanic Relationship Specialty Start Date End Date Heath Lucio MD [address] [place] [id number] PCP - General Internal Medicine 07/05/17 documented as of this encounter
--- OUTSIDE RECORDS SUMMARY | 2025-07-11 15:34 | XMS_ITS | Data Portability ---
Author Organization [place] - [facility] [address] Address [address] [place] [address] Assessment No assessment recorded. Plan of Treatment Reminders Order Date Submit Date Provider Last Modified By Organization Details Last Modified Time Details Appointments None record ed. Lab None record ed. Referral None record ed. Procedures None record ed. Surgeries None record ed. Imaging None record ed. Medication Orders None record ed. Patient TargetsNo targets recorded. Patient InstructionsNo instructions recorded. Reason for Referral None Reported. Procedures Surgical History Date Name Laterality Status Provider Name and Address Organization Details Recorded Time 3 OC-UDS Send Out Template NON DOT completed BERKLEY LOVE [facility] - [facility] 09/24/2022 13:35:42 3 [facility]-U[facility] Send Out Template NON DOT completed TASHA ISABELA [place] - [facility] 09/16/2022 11:04:52 Imaging Results None recorded. Procedure Notes None recorded. Medical Equipment None Reported. Vitals None Recorded Social History None recorded. Functional Status None recorded. Mental Status None recorded. Family History Nothing Reported. Medical History No medical history recorded. Past Encounters Encounter ID Performer Location Encounter Start Date Encounter Closed Date Diagnosis/Indication Diagnosis SNOMED-CT Code Diagnosis ICD10 Code Diagnosis IMO Codes Diagnosis Note [id number] [address] [facility] [address] [place] [address] 04/17/2017 09:33:59 04/17/2017 10:14:25 [id number] [address] [facility] [address] [place] [address] 2017 11:35:54 2017 11:52:52 [id number] [address] [address] [place] [address] 09/28/2016 17:58:29 09/28/2016 20:05:22 [id number] [address] [facility] [address] [place] [address] 01/05/2017 13:27:22 01/05/2017 13:44:40 [id number] Nicholas Rodriguez MD [address] [place] [address] 09/16/2022 10:30:53 09/16/2022 11:16:52 History and physical examination, pre-employment [id number] Z02.1 [id number] Nicholas Rodriguez MD [address] [place] [address] 09/24/2022 12:55:18 09/24/2022 13:46:05 History and physical examination, pre-employment [id number] Z02.1 Health Concerns Section Related Observation LastModified by Organization Detai ls LastModified Time None Recorded Concern Status LastModified by Organization Details LastModified Time None Recorded Advance Directives Directive None Recorded Payers Insurance Date Sequence Insurance Name Policy Number Policy Huitron Covered Member ID Huitron Member ID Guarantor Name 09/24/2022 1 [place] [employer]GRAM Ilda Casanova [id number] Daniel Casanova 09/24/2022 OC-ESCREEN Generic Employer [employer] [id number] Daniel Casanova
--- OUTSIDE RECORDS SUMMARY | 2025-07-11 15:34 | XMS_ITS | Clinical Summary ---
Author Organization [facility] Address [address] [place] [address] Phone Care Team Providers Care Medical Transcriptionist Name Role Phone Naveed Joe MD Primary Care Provider [phone] Allergies No known active allergies Medications tadalafiL (CIALIS) 20 mg tablet Take 1 tablet (20 mg total) by mouth 1 (one) time each day if needed for erectile dysfunction. Active Encounters Date Type Department Care Team Description 06/26/2025 Telephone Gastroenterology - [address] [phone] Abdias Kuhn MD from Last 3 Months Social History Tobacco Use Types Packs/Day Years Used Date Smoking Tobacco: Never Assessed Sex and Gender Information Value Date Recorded Sex Assigned at Not on file Legal Sex Male 9:17 AM EDT Gender Identity Not on file Sexual Orientation Not on file Plan of Treatment Upcoming Encounters Date Type Department Care Team (Late st Contact Info) Description 08/23/2025 3:00 PM EST Appointment [facility] Endoscopy [address] [place] [phone] Abdias Kuhn MD [address] [address] Health Maintenance Due Date Last Done Comments DTaP,Tdap,and Td Vaccines (1 - Tdap) 01/06/1995 Hepatitis B Vaccines (1 of 3 - 19+ 3-dose series) 01/06/1995 Depression Screening 09/06/2024 COVID-19 Vaccine ( - 2023-2 5 season) 2025 Influenza Vaccine (#1) 2025 Cholesterol Screening (Lipid Panel) 06/26/2025 HIV Screening 06/26/2025 Hepatitis C Screening 06/26/2025 Social Influencers of Health Screening 06/26/2025 Colorectal Cancer Screening: Colonoscopy 06/26/2035 06/26/2025 RSV Immunization Adult Patie nts (1 - 1-dose 75+ series) 01/06/2051 HIB Vaccines Aged Out No longer eligi ble based on patient's age to complete this topic HPV Vaccines Aged Out No longer eligi ble based on patient's age to complete this topic Hepatitis A Vaccines Aged Out No long er eligible based on patient's age to complete this topic IPV Vaccines Aged Out No longer eligi ble based on patient's age to complete this topic MMR Vaccines Aged Out No longer eligi ble based on patient's age to complete this topic Meningococcal ACWY Vaccine Aged Out N o longer eligible based on patient's age to complete this topic Meningococcal B Vaccine Aged Out No l onger eligible based on patient's age to complete this topic Pneumococcal Vaccine: Pediat rics (0 to 5 Years) and At-Risk Patients (6 to 49 Years) Aged Out No longer eligi ble based on patient's age to complete this topic RSV Immunization Patients Un ely 20 months Aged Out No longer eligible b ased on patient's age to complete this topic Varicella Vaccines Aged Out No longer eligible based on patient's age to complete this topic Goals Goal Patient Goal Type Associated Problems Recent Progress Patient-Stated? Author Autogenerat ed Goal Care Plan Autogenerated Problem No Lauro Velasquez Procedures Procedure Name Priority Date/Time Associated Diagnosis Comments COLONOSCOPY Routine 06/26/2025 5:19 PM EDT from Last 3 Months Results * COLONOSCOPY (06/26/2025 5:19 PM EDT) Anatomical Region Laterality Modality Endoscopy us Historical Provider GI~PROCEDURE ORDERABLES F inal Result from Last 3 Months Additional Health Concerns Active Problems Noted Date Diagnosed Date Autogenerated Problem 07/05/2025 Insurance [place] [id number] [facility] Care Teams Medical Transcriptionist Relationship Specialty Start Date End Date Naveed Joe MD [address] [place] [phone] PCP - General Internal Medicine 06/26/25
--- OUTSIDE RECORDS SUMMARY | 2025-07-11 15:34 | XMS_ITS | Clinical Summary ---
Author Organization [facility] Address [address] [place] [address] Care Team Providers Care Beer Merchant Name Role Phone Heath Lucio MD Primary Care Provider [phone] Allergies No known active allergies Medications traZODone [...] - 19+ 3-dose series) 01/06/1995 Colonoscopy 01/06/2021 Influenza Vaccine 04/06/2025 COVID-19 Vaccine (1 - 2023-2 5 season) 2025 DTaP/Tdap/Td Vaccines (2 - T d or Tdap) 07/03/2027 07/03/2017 Pneumococcal Vaccine: Pediat marva (0-5 Years) and At-Risk Patients (6 to 49 Years) Aged Out No longer eligible b ased on patient's age to complete this topic Medical Devices Implanted Type Area Fire [employer] Device Identifier Shelf Expiration Date Model / Serial / Lot Plate [id number] 10 Hole Lmt Cntct Taper End Brd Ss Bone - [id number] Implanted:Qty: 1 on 07/09/2017 by Sunil Rodas MD at [facility] Plate Right: Arm [employer] - A 226.601 / / Plate [id number] 5 Hole Ss Bone Lcp Cmbn Nonst 3.5mm Screw - [id number] Implanted:Qty: 1 on 07/09/2017 by Sunil Rodas MD at [facility] Plate Right: Arm [employer] - A 223.551 / / Screw Bone Lg Bone Flthrd Lg Hex Hmsphr Rvrs Cut Flut 70mm - [id number] Implanted:Qty: 1 on 07/06/2017 by Phoenix Roblero MD at [facility] Screw [employer] - A 209.670 / / Screw Bone Clavicle Hum Tibia Kirby Lc Dcp Dcp Flthrd Hex 10 - [id number] Implanted:Qty: 2 on 07/09/2017 by Sunil Rodas MD at [facility] Screw Right: Arm [employer] - A 204.810 / / Screw Bone Periart Cndyl Kirby Lcp 30mm Ss 4.5mm 8mm Slftp Lg - [id number] Implanted:Qty: 1 on 07/09/2017 by Sunil Rodas MD at [facility] Screw Right: Arm [employer] - A 214.830 / / Screw Bone Kirby 32mm Ss 4.5mm Slftp Lg Hex Nonst Lg Frag Set - [id number] Implanted:Qty: 5 on 07/09/2017 by Sunil Rodas MD at [facility] Screw Right: Arm [employer] - A 214.832 / / Washer 13mm Orthopedic Ss 6.5/7/7.3mm Lakisha Screw Nonst - [id number] Implanted:Qty: 1 on 07/06/2017 by Phoenix Roblero MD at [facility] Washer/Nu t [employer] - A 219.99 / / [id number] Screw Implanted:Qty: 2 on 07/06/2017 by Phoenix Roblero MD at [facility] [employer] - A [id number] 9 / / 500mm Tony Implanted:Qty: 1 on 07/06/2017 by Phoenix Roblero MD at [facility] [employer] - A [id number] 5 / / Saddless Cap Implanted:Qty: 2 on 07/06/2017 by Phoenix Roblero MD at [facility] [employer] - A [id number] 9 / / [place] [phone] [facility] [place] [facility] [place] Advance Directives * Full Code [...] 3:55 PM 07/07/2017 5:52 AM Care Teams Beer Merchant Relationship Specialty Start Date End Date Heath Lucio MD [address] [place] [address] PCP - General Internal Medicine 07/05/17
== END 2025-07-11 13:40 | disposition home or self-care (01) ==
LOC: HO.HBS 12:53
PROVIDERS: PCP Internal Medicine; Visit Provider Physician Assistant Surgical
DX: E66.3 Overweight (principal); Z68.28 Body mass index [BMI] 28.0-28.9, adult; Z90.3 Acquired absence of stomach [part of]; Z98.84 Bariatric surgery status
CPT/HCPCS: 99214